=== PATIENT | male | born 2000 | race Hispanic/Latino ===

== ENCOUNTER 2021-08-03 11:11 | Emergency (ER) | payer OTHER ==
[~2021-08-03] VITALS: Ht 406.4 cm; Wt 61.2 kg
[2021-08-03 11:12] VITALS: BP 128/75
[2021-08-03] MEDS ORDERED: IBUP-1552 PO (13:47)
[2021-08-03] MEDS ORDERED: IBUPROFEN 600 MG TABLET PO ONE (14:00)
== END 2021-08-03 14:00 | disposition home or self-care (01) ==
LOC: EDH 11:11
DX: S80.01XA Contusion of right knee, initial encounter (principal); Z79.1 Long term (current) use of non-steroidal anti-inflammatories (NSAID); W01.0XXA Fall on same level from slipping, tripping and stumbling without subsequent striking against object, initial encounter; Y93.89 Activity, other specified; Y92.89 Other specified places as the place of occurrence of the external cause; Y99.8 Other external cause status
CPT/HCPCS: 73562